=== PATIENT | female | born 1985 | race Caucasian/White ===

== ENCOUNTER 2018-03-11 13:42 | Day surgery (SDC) | payer OTHER ==
--- NOTE | 2018-03-11 13:15 | PDGENHP ---
History and Physical History and Physical: HPI: Patient is a 32 yo with MAB noted at 9w1d. Pt has not had any vaginal bleeding or pain. She was seen in office yesterday for her routine NOB visit. CRL was c/w 9w1d. No cardiac activity noted. LMP 12/28/17 She is sad, but appropriate. Review of Systems: Constitutional: Denies any fever, chills, or fatigue HEENT: denies any visual changes, difficulty swallowing, hearing loss Cardiovascular: Denies any chest pain, palpitations, leg swelling Respiratory: denies any cough, wheezing, or shortness of breathe GI: Denies any nausea, vomiting, diarrhea, constipation : denies any dysuria, urgency, frequency, vaginal bleeding Musculoskeletal: denies any muscle or bone pain Skin: denies any rashes Neuro: denies any headache, seizures, lightheadedness, dizziness, or loss of consciousness Psychiatric: denies any depression, anxiety, or SI/HI thoughts HISTORY: Previous OB history: SAB 07/2017 Past medical history: noncontributory Past surgical history: none Social: Denies any alcohol, tobacco, or drug use. Family history: Not relevant, mother with severe spinal stenosis Medications: PNV Allergies (list reaction): NKDA LABS: Rh: pending ABS: pending BMI: (prepreg) 23 PHYSICAL EXAM: Constitutional: WN, A&Ox3 HEENT: normocephalic atraumatic, supple Skin: Warm, dry, intact Heart: RRR, no murmur Chest: CTA-B Abdomen: Soft, nontender SVE: closed (per exam on 03/10/18 by Fallon Dodge) Extremities: no edema, negative homans sign Neuro: grossly normal Psych: normal affect Assessment: 1) [id number] with MAB @ 9w1d Plan: 1) Admit to L&D 2) proceed with D&C per Delaney Hoff Today's visit was approximately 30 min, of which >50% of visit 20 min, was spent face to face with pt on direct counseling/coordination of care.
--- NOTE | 2018-03-11 13:28 | PDANEPAE ---
ANE History of Present Illness Missed Ab. ANE Past Medical History - Cardiovascular History Hx Hypertension: No Hx Arrhythmias: No Hx Chest Pain: No Hx Coronary Artery / Peripheral Vascular Disease: No Hx CHF / Valvular Disease: No Hx Palpitations: No - Pulmonary History Hx COPD: No Hx Asthma/Reactive Airway Disease: No Hx Oxygen in Use at Home: No Hx Sleep Apnea: No Sleep Apnea Screening Result - Last Documented: Negative - Surgical History Prior Surgeries: Timnath teeth. ANE Review of Systems Review of systems is: negative Review of Systems: - Exercise capacity Exercise capacity: >=4 METS ANE Patient History - Allergies Allergies/Adverse Reactions: No Known Allergies Allergy (Unverified 03/11/18 12:36) - NPO status NPO Status: no food or drink >8 hours NPO Since - Liquids (Date): 03/11/18 NPO Since - Liquids (Time): 00:00 NPO Since - Solids (Date): 03/11/18 NPO Since - Solids (Time): 00:00 - Anes Hx Anes Hx: no prior problems - Smoking Hx Smoking Status: Never smoked - Alcohol Use Alcohol Use: Rarely - Family Anes Hx Family Anes Hx: neg - N/A ANE Labs/Vital Signs - Vital Signs Blood Pressure: 99/75 Heart Rate: 70 Respiratory Rate: 18 O2 Sat (%): 99 Height: 157.48 cm Weight: 58.06 kg ANE Physical Exam - Airway Neck exam: FROM Mallampati Score: Class 1 Mouth exam: normal dental/mouth exam - Pulmonary Pulmonary: no respiratory distress - Cardiovascular Cardiovascular: regular rate and rhythym - ASA Status ASA Status: I ANE Anesthesia Plan Anesthesia Plan: GA with mask
--- NOTE | 2018-03-11 13:34 | PDHPUP ---
History & Physical Update H&P update statement: This history and physical update is based on an assessment of the patient which was completed after admission or registration (within 24 hours), but prior to the surgery/procedure. H&P update: H&P reviewed & patient examined, no change in patient's condition since H&P completed
--- NOTE | 2018-03-11 14:32 | POSTOPPROG ---
Post Op Note Date of Operation: 03/11/18 Surgeon: Delaney Hoff Anesthesiologist: Dr Saurabh Aguiar Anesthesia: GET(General Endotracheal), Other (Specify) (bag mask) Pre-op Diagnosis: missed @ 9 weeks Post-op Diagnosis: same Procedure: suction dilation and curettage Inf/Abcess present in the surg proc area at time of surgery?: No Depth: Organ Space EBL: Minimal Total fluids administered: 1000 Complications: none Specimen(s): products of conception for genetic evaluation with Ano
[2018-03-11] MEDS ORDERED: fentaNYL 100 MCG/2 ML INJ ONE (14:34)
[2018-03-11] MEDS ORDERED: NALOXONE HCL 0.4 MG/ML INJ IVP PRN (15:10)
[2018-03-11] MEDS ORDERED: HYDROCODONE/APAP 5/325 TAB PO PRN (15:10)
[2018-03-11] MEDS ORDERED: fentaNYL 100 MCG/2 ML INJ IVP PRN (15:10)
[2018-03-11] MEDS ORDERED: METOCLOPRAMIDE 10 MG/2 ML VIAL IVP PRN (15:10)
--- NOTE | 2018-03-11 15:10 | POSTANESTH ---
Post Anesthetic Evaluation Cardiovascular Status: Normal, Stable, Similar to Pre-Op Cond (Getting pain medication in PACU.) Respiratory Status: Normal, Stable, Similar to Pre-op Cond. Level of Consciousness/Mental Status: Can Participate in Eval, Alert and Oriented Pain Control: Inadeq, Add Tx Required Nausea/Vomiting Control: Adequate, Prn Tx Ordered
--- NOTE | 2018-03-11 15:16 | GOP ---
DATE OF OPERATION: 03/11/2018 SURGEON: Delaney Hoff MD ANESTHESIA: General anesthesia with bag-mask ventilation. ANESTHESIOLOGIST: Saurabh Aguiar MD PREOPERATIVE DIAGNOSIS: Missed at 9 weeks gestation. POSTOPERATIVE DIAGNOSIS: Missed at 9 weeks gestation. PROCEDURE PERFORMED: Suction dilation and curettage. FINDINGS: SPECIMENS: Pathologic specimen will be products of conception which will be sent for genetic evaluat ion . ESTIMATED BLOOD LOSS: Less than 10 cc. INDICATIONS: Tatyana is a 32-year-old, 2, para 0-0-1-0 with a last menstrual period of 018, who presented for a routine new OB visit yesterday on 03/10/2018, and was diagnosed with a misse d at 9 weeks 1 day. She had an ultrasound that revealed a pole that 9 weeks 1 day wit h no cardiac motion. She was supposed to be 10 and 2/7 by dates. The patient was consulted on treatment options, medical management versus surgical management with suction D and C, and the patien t desired a suction D and C for definitive management. She was consented for the procedure. She und erstood the risks and benefits, the risks including bleeding, infection, damage to uterus including p ossible risk of perforation, damage to other organs if perforation was to occur, incomplete removal o f all the tissue with need for spontaneous expulsion or repeat procedure, and compromise of future fe rtility. She understood these risks and benefits and agreed to proceed. DESCRIPTION OF PROCEDURE: Patient was taken to the operating room where she was placed under general anesthesia without difficulty. She was prepped and draped in the dorsal lithotomy position. After a WHO time-out was performed and anesthesia was documented, an open-sided speculum was placed in the vagina, and a single-tooth tenaculum was used to grasp the anterior lip of the cervix. The uterus wa s gently sounded to a #9, and the cervix was then progressively dilated with Thorpe dilators to a #9.5 . A #9 curved suction curette was then gently advanced from the cervix to the fundus. Suction was a pplied and with several passages of the suction device, products of conception were obtained. Sharp curettage was then performed in a clockwise fashion until a gritty texture was palpated throughout th e entire endometrial cavity. Final passage of the suction revealed small bleeding, no retained tissu e. The tenaculum was removed. There was a small area of bleeding from the tenaculum site that was c auterized with silver nitrate. The speculum was removed. A transvaginal ultrasound was then performe d and a normal mobile uterus was seen with a thin endometrial stripe. No retained products of concep tion or any active bleeding. The patient tolerated the procedure well. Sponge, lap, needle, and ins trument counts were correct x2. The patient went to the recovery room in good condition. IV FLUIDS: 1000 cc. URINE OUTPUT: Not measured. /[id number]/MODL
[2018-03-14 06:45] VITALS: BP 99/75
== END 2018-03-11 15:40 | disposition home or self-care (01) ==
LOC: FOBOP 13:42 → EDSTATUS 03-12 16:22
PROVIDERS: ATTEND Obstetrics & Gynecology
PROC: 10D18ZZ Extraction of Products of Conception, Retained, Via Natural or Artificial Opening Endoscopic (ICD-10-PCS; principal; 2018-03-11)
DX: O02.1 Missed abortion (principal); Z3A.09 9 weeks gestation of pregnancy
CPT/HCPCS: J3010

== ENCOUNTER → 2018-11-27 | Outpatient (CLI) | payer OTHER | LOC: FIMAGING 08:33 ==